=== PATIENT | male | born 1990 | race Caucasian/White ===

== ENCOUNTER 2017-12-10 18:25 | Emergency (ER) | payer SELFPAY ==
[~2017-12-10] VITALS: Ht 172.7 cm; Wt 68.0 kg
[2017-12-10] MEDS ORDERED: NKM (18:35)
[2017-12-10] MEDS ORDERED: Tylenol #3 tab (300mg/30mg) ORAL ONE (19:00)
--- NOTE | 2017-12-10 19:04 | Emergency Room Report ---
History of Present Illness General Chief Complaint: Head Injury Source: Patient (Felipe Diaz) Present Illness HPI 27-year-old male patient presents to ER complaining of slip and fall injury one day ago. Reports that he slipped on some water and fell back and hit the back of his head on the ground. Denies loss of consciousness, vomiting, vision changes. Also complains of Right hand and knee pain from the fall. Denies pain with ambulation. Reports he is right-hand dominant. States he has not taken any medication for relief of pain symptoms reports allergy to ibuprofen. Reports that he is taking Tylenol on the past without onset of allergic reaction symptoms. Denies other acute symptoms. Denies fever, chest pain, shortness of breath. Denies bleeding or laceration injury on scalp. (Felipe Diaz) Allergies: Coded Allergies: NSAIDS (NON-STEROIDAL ANTI-INFLAMMA (Verified Allergy, Unknown, 12/10/17) Patient History Past Medical History: see triage record Reviewed Nursing Documentation: PMH: Agreed; PSxH: Agreed (eFlipe Diaz) Nursing Documentation-PMH Past Medical History: No Stated History (Felipe Diaz) Review of Systems All Other Systems: negative except mentioned in HPI (Felipe Diaz) Physical Exam Vital Signs Date Time Temp Pulse Resp B/P (MAP) Pulse Ox O2 Delivery O2 Flow Rate FiO2 12/10/17 18:32 98.3 79 22 114/63 97 Room Air 98.2 Sp02 EP Interpretation: reviewed, normal General Appearance: well appearing, no apparent distress, alert, GCS 15, non- toxic Head: normocephalic, atraumatic, other - negative Winters sign, negative denies , no skull depression, hematoma, no laceration Eyes: bilateral eye normal inspection, bilateral eye PERRL ENT: hearing grossly normal, normal pharynx, no angioedema, normal voice, TMs + canals normal - no hemotympanum, uvula midline, moist mucus membranes Neck: full range of motion, no bony tend Respiratory: lungs clear, normal breath sounds, no rhonchi, no respiratory distress, no accessory muscle use, no wheezing, speaking full sentences Cardiovascular #1: regular rate, rhythm, no edema Genitourinary: no CVA tenderness Musculoskeletal: back normal, digits/nails normal, gait/station normal, non- tender, no calf tenderness, decreased range of motion - secondary to pain, other - NVI, no snuffbox tenderness; negative anterior posterior drawer, no laxity with varus or valgus stress, no swelling or ecchymosis; no bony step-off of spine, tender - dorsum of right hand over third and fourth metacarpal, Neurologic: alert, oriented x3, responsive, 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 Kulkarni is my supervising Physician whom patient management has been discussed with. (Felipe Diaz) Diagnostic Impression: Primary Impression: Acute head injury Additional Impressions: Knee pain Hand pain ER Course Pt presents to ED c/o head trauma. DDX considered but are not limited to laceration, abrasion, contusion, cellulitis, ICH, skull fracture, sprain, strain, fracture, contusion. No erythema, no warmth to touch, no fever, nontoxic appearing, low suspicion for septic joint. Ordered CT of head to rule out acute pathology. VITAL SIGNS are WNL, patient is afebrile Ordered CT head, xrays, and pain medication. ED INTERVENTIONS: PE negative for raccoon eyes, negative Winters sign, no hemotympanum, no skull depression. Cranial nerves intact as tested. CT head negative for acute disease. Instructed patient to use cool compresses pain and swelling. An X-ray of the right hand was ordered, results show no acute fracture, per the preliminary reading. An X-ray of the right wrist was ordered, results show no acute fracture, per the preliminary reading. Copy of image reports provided to patient. Reports pain symptoms improved. Splint was applied to the right hand and knee and was checked afterwards by me showing good alignment and support with distal neurovascular functioning intact. Crutches provided. Patient instructed on RICE method: rest, ice, compression, elevation. Patient instructed to WBAT. Followup with primary care provider for medical clearance to return to activities. Discuss referral to ortho/pain management/PT as needed. Discuss further imaging with MRI/CT as needed. discuss referral to neurology. Patient OK for discharge to home. Patient resting comfortably, in no acute distress, nontoxic appearing. DISCHARGE: -Rx provided for Tylenol #3 for pain symptoms. CURES report reviewed no recent prescription refills -Rx provided for Methocarbamol. SE drowsiness, do not drink, drive, or operate heavy machinery while using. At this time pt is stable for d/c to home. Patient resting comfortably, in no acute distress, nontoxic appearing, talking without difficulty. Will provide with patient care instructions and any necessary prescriptions. Patient to take medication as instructed. Care plan and follow-up instructions provided. Patient questions asked and answered. Patient reports understanding and agreement to treatment plan. ER precautions given. Patient instructed to return to ER immediately for any new or worsening of symptoms including but not limited to vision loss, intractable vomiting, worsening of WEBB, focal neuro deficits. - Please note that this Emergency Department Report was dictated using [employer] financial analyst technology software, occasionally this can lead to erroneous entry secondary to interpretation by the dictation equipment. (Felipe Diaz P.A.) Other X-Ray Diagnostic Results Other X-Ray Diagnostic Results #1: X-Ray ordered: right hand # of Views/Limited Vs Complete: 3 View Indication: Pain EP Interpretation: Yes PA Xray: Interpretation reviewed, by supervising MD, and agrees with findings. Interpretation: no soft tissue swelling, no fractures Impression: No acute disease PA Scribe Text Jamari Diaz PA-C Other X-Ray Diagnostic Results #2: X-Ray ordered: right knee # of Views/Limited Vs Complete: 3 View Indication: Pain EP Interpretation: Yes PA Xray: Interpretation reviewed, by supervising MD, and agrees with findings. Interpretation: no dislocation, no soft tissue swelling, no fractures Impression: No acute disease PA Scribe Text Jamari Diaz PA-C (Felipe Diaz P.A.) Other X-Ray Diagnostic Results #1: Electronically Signed by: Scribe documentation reviewed by me and is accurate, Zuhair Kulkarni MD. Other X-Ray Diagnostic Results #2: Electronically Signed by: Scribe documentation reviewed by me and is accurate, Zuhair Kulkarni MD. (Zuhair Kulkarni M.D.) CT/MRI/US Diagnostic Results CT/MRI/US Diagnostic Results : Imaging Test Ordered: ct head Impression no intracranial hemorrhage or skull fracture (Felipe Diaz P.A.) Last Vital Signs Date Time Temp Pulse Resp B/P (MAP) Pulse Ox O2 Delivery O2 Flow Rate FiO2 12/10/17 18:32 98.3 79 22 114/63 97 Room Air 98.2 (Felipe Diaz) Disposition: HOME, SELF-CARE Condition: Stable Scripts Acetaminophen With Codeine (T#3) (TYLENOL #3 TAB*) Y Tab 1 TAB ORAL Q6HR PRN for For Pain, #15 TAB Prov: Felipe Diaz 12/10/17 Methocarbamol* (ROBAXIN*) 500 Mg Tablet 500 MG PO TID, #21 TAB 0 Refills Prov: Felipe Diaz 12/10/17 Patient Instructions: Hand Contusion, [id number], Head Injury, Adult, Easy-to -Read, Knee Pain, [id number] Additional Instructions: Patient instructed to follow up with primary care provider in 3-5 days and discuss further referral to orthopedics/PT as needed. Discuss referral to neurology as needed. Patient instructed on RICE method: rest, ice, compression, elevation. Patient instructed to WBAT. Take medications as directed. SE drowsiness, do not take with drinking driving or operating heavy machinery. Patient questions asked and answered. ER precautions given, patient instructed to return to ER immediately for any new or worsening of symptoms. Felipe Diaz Dec 10, 2017 19:04 Zuhair Kulkarni M.D. Dec 12, 2017 02:45
--- NOTE | 2017-12-10 19:18 | Diagnostic Imaging Report ---
EXAM: CT Head Without Intravenous Contrast CLINICAL HISTORY: PAIN TECHNIQUE: Axial computed tomography images of the head/brain without intravenous contrast. CTDI is 70.38 + 0.15 mGy and DLP is 1319 mGy-cm. One or more of the following dose reduction techniques were used: automated exposure control, adjustment of the mA and/or kV according to patient size, use of iterative reconstruction technique. COMPARISON: No relevant prior studies available. FINDINGS: Brain: No hemorrhage. No edema. Ventricles: No ventriculomegaly. Bones/joints: No acute fracture. Soft tissues: Mild scalp swelling on the right Sinuses: No acute sinusitis. Mastoid air cells: No mastoid effusion. IMPRESSION: No intracranial hemorrhage or skull fracture.
--- NOTE | 2017-12-10 19:38 | Diagnostic Imaging Report ---
EXAM: XR Right Hand Complete, 3 or More Views CLINICAL HISTORY: PAIN TECHNIQUE: Frontal, lateral and oblique views of the right hand. COMPARISON: No relevant prior studies available. FINDINGS: Bones/joints: Suggestion of mild heterogeneity in the distal aspect of the fifth metacarpal. Carpal bones are incompletely imaged. Soft tissues: No radiodense foreign body. IMPRESSION: Suggestion of mild heterogeneity in the distal aspect of the fifth metacarpal. Subtle fracture not excluded. Correlate with tenderness.
--- NOTE | 2017-12-10 19:39 | Diagnostic Imaging Report ---
EXAM: XR Left Knee Complete, 3 more Views CLINICAL HISTORY: PAIN TECHNIQUE: 3 or more views of the left knee. COMPARISON: No relevant prior studies available. FINDINGS: Bones/joints: No acute fracture. Soft tissues: No radiodense foreign body. IMPRESSION: No acute fracture.
[2017-12-10 20:00] VITALS: BP 122/63
[2017-12-10] MEDS ORDERED: ROBAXIN500 MG PO (20:09)
[2017-12-10] MEDS ORDERED: ACETAMINOPHEN-1 EAC1 ORAL (20:09)
[2017-12-10 20:25] VITALS: BP 122/63
== END 2017-12-10 20:25 | disposition home or self-care (01) ==
LOC: EMR 19:06
DX: S09.90XA Unspecified injury of head, initial encounter (principal); W01.0XXA Fall on same level from slipping, tripping and stumbling without subsequent striking against object, initial encounter; Y92.9 Unspecified place or not applicable; M79.641 Pain in right hand; M25.562 Pain in left knee; R51 Headache
CPT/HCPCS: 70450; 99284